=== PATIENT | female | born 1995 | race Caucasian/White ===

== ENCOUNTER 2023-06-10 23:37 | Outpatient (CLI) | payer MEDICAID | END 2023-06-10 23:59 | disposition critical access hospital (66) | LOC: EMS 23:37 | DX: R05.9 Cough, unspecified (principal); J45.909 Unspecified asthma, uncomplicated; M54.6 Pain in thoracic spine; F41.9 Anxiety disorder, unspecified | CPT/HCPCS: A0425; A0427; A0999 ==

== ENCOUNTER 2023-06-10 23:56 | Emergency (ER) | payer MEDICAID ==
[2023-06-11] MEDS ORDERED: LEVALBUTEROL 1.25 MG/3 ML NEB INH ONE (00:02)
[2023-06-11 00:26] LABS: BASOPHILS % (AUTO) 0.1 %; HCT - HEMATOCRIT 38.6 % (37.0-47.0); HGB - HEMOGLOBIN 12.5 g/dL (12.0-16.0); LYMPHOCYTES % (AUTO) 10.1 %; MEAN CORPUSCULAR HEMOGLOBIN 30.3 pg (27.0-31.0); MEAN CORPUSCULAR HGB CONC 32.4 g/dL (32.0-36.0); MEAN CORPUSCULAR VOLUME 93.7 fL (81.0-99.0); MEAN PLATELET VOLUME 11.8 fL (7.9-10.8); MONOCYTES % (AUTO) 16.1 %; NEUTROPHILS % (AUTO) 73.5 %; PLT - PLATELET COUNT 286 10^3/uL (130-450); RED BLOOD COUNT 4.12 10^6/uL (4.20-5.40); WHITE BLOOD COUNT 12.5 x10^3/uL (4.8-10.8)
[2023-06-11] MEDS ORDERED: LORazepam 2 MG/ML VIAL IVP STA (00:29)
[2023-06-11] MEDS ORDERED: KETOROLAC 30 MG/ML VIAL IVP STA (00:30)
[2023-06-11] MEDS ORDERED: HYDROmorphone 0.5 MG/0.5 ML SYRINGE IVP STA (00:31)
[2023-06-11 00:34] LABS: ABNORMAL LYMPHS % (MANUAL) 0 %
--- NOTE | 2023-06-11 00:34 | ED Physician Documentation ---
PD HPI DYSPNEA - Stated complaint Stated Complaint: ASTHMA/SOA - Chief complaint Chief Complaint: Resp - History obtained from History obtained from: Patient, Family, EMS - Additional information Additional information: The patient comes to the emergency department chief complaint of difficulty breathing. She has a history of asthma but over the past week has had an upper respiratory type infection with rhinorrhea and cough, which has exacerbated her asthma. The patient has been taking multiple leave albuterol treatments each day and also, after being seen at the walk-in clinic, has been on steroids and an antibiotic for the last 3 days. The patient's significant other states she had an x-ray of her chest which was negative but was not worked up with a respiratory PCR or any other viral testing. The patient states other than asthma she is fairly healthy. 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 She does get exacerbations when she has an upper respiratory infection however. The patient denies any fevers or chills. She actually went to work today but this evening, began to feel short of breath and as though she was wheezing again. She took her Xopenex nebulizer treatments at home but felt like it made her worse and then she began having a terrible coughing fit which she could not seem to overcome. She states that the only thing that helps her is her patting her back. Medics report that they gave Decadron and route and that the patient did not really seem to have any relief. The patient states that she does have a cramp in her left side, she believes from all the coughing. No other complaints at this time. PD PAST MEDICAL HISTORY - Past Medical History Past Medical History: Yes Respiratory: Asthma Psych: Depression, Anxiety, ADD/ADHD - Past Surgical History Past Surgical History: Yes - Present Medications Home Medications: Ambulatory Orders Medication Instructions Recorded Confirmed Amox/Clav 875/125 [Augmentin 875 mg PO BID 06/11/23 06/11/23 875/125 Tab] Benzonatate 200 mg PO DAILY 06/11/23 06/11/23 Budesonide/Formoterol Fumarate 160 mg INH PRN PRN 06/11/23 06/11/23 [Symbicort 160-4.5 Mcg Inhaler] Codeine Phosphate/Guaifenesin 10 ml PO Q6H PRN #250 ml 06/11/23 [Guaifen-Codeine 200-20 mg/10Ml] Dextroamphetamine/Amphetamine 20 mg PO DAILY 06/11/23 06/11/23 [Adderall 20 mg Tablet] Gabapentin [Neurontin] 300 mg PO TID 06/11/23 06/11/23 Ibuprofen [Motrin] 800 mg PO Q8H PRN #30 tablet 06/11/23 Ipratropium [Atrovent] 0.5 mg INH Q6H PRN #25 ml 06/11/23 Levalbuterol [Xopenex] 1.25 mg IH PRN PRN 06/11/23 06/11/23 Levalbuterol [Xopenex] 1.25 mg INH RTQ4H PRN #50 each 06/11/23 predniSONE [Prednisone] 50 mg PO DAILY 06/11/23 06/11/23 - Allergies Allergies/Adverse Reactions: Allergies Allergy/AdvReac Type Severity Reaction Status Date / Time albuterol Allergy Anaphylaxis Verified 06/11/23 00:11 - Social History Does the pt smoke?: No Smoking Status: Never smoker Does the pt drink ETOH?: No Does the pt have substance abuse?: No PD ED PE NORMAL - Vitals Vital signs reviewed: Yes - General General: Alert and oriented X 3, Well developed/nourished, Other (Patient is coughing continuously and appears extremely anxious.) - HEENT HEENT: Atraumatic, PERRL, EOMI, Moist mucous membranes - Neck Neck: Supple, no meningeal sign - Cardiac Cardiac: No murmur, Other (Tachycardic rate regular rhythm no murmurs.) - Respiratory Respiratory: Other (Robust air movement into the depths of bilateral lungs with some transmission of upper airway sounds and possibly, some mild rhonchi. No high-pitched wheezing. No rales. No prolonged expiratory phase. Tachypnea.) - Abdomen Abdomen: Normal bowel sounds, Soft, Non tender, Non distended - Derm Derm: Warm and dry - Extremities Extremities: No deformity - Neuro Neuro: Alert and oriented X 3 - Psych Psych: Normal mood, Normal affect Results - Vitals Vitals: Vital Signs - 24 hr 06/11/23 06/11/23 06/11/23 00:03 00:09 02:09 Temperature 36.3 C L Heart Rate 145 H 120 H 99 Respiratory 38 H 28 H 22 Rate Blood Pressure 144/101 H 129/69 O2 Saturation 100 98 97 Oxygen O2 Source Room air - EKG (time done) 0205 EKG releavant findings:: EKG personally interpreted by author of this note. Relevant findings are: Rate: Rate (enter#) (90) Rhythm: NSR Egan: Normal Intervals: Normal ND QRS: Normal Ischemia: Normal ST segments Compare to prior EKG: Old EKG unavailable Computer interpretation: Agree with computer - Labs Labs: Laboratory Tests 06/11/23 06/11/23 06/11/23 00:04 00:04 00:40 WBC 12.5 H RBC 4.12 L Hgb 12.5 Hct 38.6 MCV 93.7 MCH 30.3 MCHC 32.4 RDW 13.0 Plt Count 286 MPV 11.8 H Neut # (Auto) Not Reportable Lymph # (Auto) Not Reportable [place] # (Auto) Not Reportable Eos # (Auto) Not Reportable Baso # (Auto) Not Reportable Absolute Nucleated RBC Not Reportable Total Counted 100 Band Neuts % (Manual) 1 Abnorm Lymph % (Manual) 0 Nucleated RBC % Not Reportable Neutrophils # (Manual) 9.0 H Lymphocytes # (Manual) 1.5 Monocytes # (Manual) 2.0 H Eosinophils # (Manual) 0.0 Basophils # (Manual) 0.0 Differential Comment MANUAL DIFFERENTIAL Platelet Estimate NORMAL (130-450,000) RBC Morph Micro Appear NORMAL APPEARANCE Sodium 140 Potassium 3.7 Chloride 102 Carbon Dioxide 22 Anion Gap 16.0 H BUN 14 Creatinine 0.7 Estimated GFR (MDRD) 99 Glucose 130 H Calcium 10.5 H Total Bilirubin 0.5 AST 25 ALT 21 Alkaline Phosphatase 60 Total Protein 7.9 Albumin 5.0 Globulin 2.9 Albumin/Globulin Ratio 1.7 Lipase 168 H Nasal Adenovirus (PCR) NOT DETECTED Nasal B. parapertussis DNA (PCR) NOT DETECTED Nasal Coronavir 229E PCR NOT DETECTED Nasal Coronavir HKU1 PCR NOT DETECTED Nasal Coronavir NL63 PCR NOT DETECTED Nasal Coronavir OC43 PCR NOT DETECTED Nasal Enterovir/Rhinovir PCR NOT DETECTED Nasal Influenza B PCR NOT DETECTED Nasal Influenza A PCR NOT DETECTED Nasal Parainfluen 1 PCR NOT DETECTED Nasal Parainfluen 2 PCR NOT DETECTED Nasal Parainfluen 3 PCR NOT DETECTED Nasal Parainfluen 4 PCR NOT DETECTED Nasal RSV (PCR) DETECTED A Nasal B.pertussis DNA PCR NOT DETECTED Nasal C.pneumoniae (PCR) NOT DETECTED Jose Human Metapneumo PCR NOT DETECTED Nasal M.pneumoniae (PCR) NOT DETECTED Nasal SARS-CoV-2 (PCR) NOT DETECTED Ethyl Alcohol < 10.0 - Rads (name of study) CXR Relevant Findings:: Final report received, See rad report (neg) PD Medical Decision Making - ED course Complexity details: reviewed results, re-evaluated patient, considered differential, d/w patient, d/w family ED course: The patient actually had good air movement and oxygen saturation and was already on antibiotics, steroids, and her Xopenex nebs. I felt she most likely was suffering from a combination of sympathetic overload from the meds and the coughing fit as well as possibly anxiety, and also, having discomfort from the physical roughness of the coughing. As such, I did order an IV dose of Ativan, as well as Dilaudid and Toradol. A chest x-ray was performed and unremarkable. The patient had asked to use her own Xopenex nebs here in the ED and she did take a couple of them while here. The patient actually ended up refusing the Ativan and Dilaudid but did except the Toradol. She was found to be resting comfortably and lungs were completely clear. Her respiratory PCR panel came back positive for RSV. Her EKG was completely normal. Laboratory studies were unremarkable. I discussed all of this at length with the patient, who had many questions. I answered all of her questions and ultimately, her main concerns came down to getting through the symptoms and keeping her asthma under control. I have prescribed symptomatic meds for at home, as well as refilling her nebules. The patient is stable for discharge home. We have discussed home management of the symptoms, as well as the usual indications for return. Departure - Departure Disposition: 01 Home, Self Care Clinical Impression: RSV (respiratory syncytial virus infection) Asthma Qualifiers: Asthma severity: mild Asthma persistence: intermittent Asthma complication type: with acute exacerbation Qualified Code(s): J45.21 - Mild intermittent asthma with (acute) exacerbation Condition: Stable Instructions: Virus Respiratory Syncytial, ED Viral Syndrome Prescriptions: Ipratropium [Atrovent] 0.5 mg INH Q6H PRN #25 ml PRN Reason: Wheezing Codeine Phosphate/Guaifenesin [Guaifen-Codeine 200-20 mg/10Ml] 10 ml PO Q6H PRN #250 ml PRN Reason: Cough Ibuprofen [Motrin] 800 mg PO Q8H PRN #30 tablet PRN Reason: PAIN &/OR FEVER Levalbuterol [Xopenex] 1.25 mg INH RTQ4H PRN #50 each PRN Reason: Wheezing Comments: Overall, your tests look good. Your labs do not show any concerning abnormalities and your chest x-ray is clear. Your EKG is completely normal with no evidence of pericarditis or any other cardiac emergency. Your respiratory PCR panel, that nasal swab, it did come back positive for RSV, a common upper respiratory virus. In most people, RSV causes a bad "cold" with hard coughing. It can last anywhere from several days to a couple of weeks and ultimately, w ill resolve on its own. Antibiotics will not help this illness. You have already been placed on antibiotics for bronchitis from the walk-in clinic, and at this point, might as well finish the course. You should also finish your steroid course and take your home nebulizers and inhalers as needed. If you experience further aches or pains, you may take ibuprofen and Tylenol to help with these. Please continue your plans to get established with primary care as soon as possible, as well. Forms: PCP List Discharge Date/Time: 06/11/23 02:37
[2023-06-11 00:39] LABS: ETOH - ETHANOL < 10.0 mg/dL; LIPASE 168 U/L (11-82)
[2023-06-11 00:42] LABS: ALBUMIN/GLOBULIN RATIO 1.7 (1.0-2.2); ALKALINE PHOSPHATASE 60 IU/L (42-121); ALT ALANINE AMINOTRANSFERASE 21 IU/L (10-60); AST ASPARTATE AMINOTRANSFERASE 25 IU/L (10-42); BILIRUBIN,TOTAL 0.5 mg/dL (0.2-1.0); BUN - BLOOD UREA NITROGEN 14 mg/dL (6-20); CALCIUM 10.5 mg/dL (8.5-10.3); CARBON DIOXIDE - CO2 22 mmol/L (21-32); CHLORIDE 102 mmol/L (101-111); CREATININE 0.7 mg/dL (0.6-1.3); GFR - MDRD 99 (>89); GLUCOSE 130 mg/dL (74-104); POTASSIUM 3.7 mmol/L (3.5-4.5); SODIUM 140 mmol/L (135-145); TOTAL PROTEIN 7.9 g/dL (6.4-8.9)
[2023-06-11 01:15] LABS: BAND NEUTROPHILS % (MANUAL) 1 %; DIFFERENTIAL COMMENT MANUAL DIFFERENTIAL; LYMPHOCYTES # (MANUAL) 1.5 10^3/uL (1.5-3.5); LYMPHOCYTES % (MANUAL) 12 %; PLATELET ESTIMATE, MANUAL NORMAL (130-450,000) (NORMAL); RBC MORPHOLOGY (MULTIPLE) NORMAL APPEARANCE (NORMAL)
[2023-06-11 01:37] LABS: B. PARAPERTUSSIS- RESP PCR PAN NOT DETECTED; B. PERTUSSIS- RESP PCR PANEL NOT DETECTED; C. PNEUMONIAE- RESP PCR PANEL NOT DETECTED; CORONAVIRUS 229E-RESP PCR NOT DETECTED; CORONAVIRUS HKU1-RESP PCR NOT DETECTED; CORONAVIRUS NL63-RESP PCR NOT DETECTED; CORONAVIRUS OC43-RESP PCR NOT DETECTED; HUMAN METAPNEUMOVIRUS NOT DETECTED; INFLUENZA A- RESP PCR PANEL NOT DETECTED; INFLUENZA B - RESP PCR PANEL NOT DETECTED; M. PNEUMONIAE- RESP PCR PANEL NOT DETECTED; PARAINFLUENZA VIRUS 1 NOT DETECTED; PARAINFLUENZA VIRUS 2 NOT DETECTED; PARAINFLUENZA VIRUS 3 NOT DETECTED; PARAINFLUENZA VIRUS 4 NOT DETECTED; RHINOVIRUS/ENTEROVIRUS NOT DETECTED; RSV- RESP PCR PANEL DETECTED; SARS-CoV-2 -RESP PCR PANEL NOT DETECTED
--- NOTE | 2023-06-11 01:53 | XRAY Report ---
PROCEDURE: Chest 1 View X-Ray INDICATIONS: sob TECHNIQUE: One view of the chest was acquired. COMPARISON: None. FINDINGS: Surgical changes and devices: None. Lungs and pleura: No pleural effusions or pneumothorax. Lungs are clear. Mediastinum: Mediastinal contours appear normal. Heart size is normal. Bones and chest wall: No suspicious bony lesions. Overlying soft tissues appear unremarkable. IMPRESSION: No acute cardiopulmonary process. No focal consolidation. Reviewed by: Rajesh Allen MD on 06/11/2023 1:51 AM [facility] Approved by: Rajesh Allen MD on 06/11/2023 1:51 AM [facility] Station ID: [id number]
[2023-06-11 02:45] VITALS: BP 129/69; O2SAT 97
== END 2023-06-11 02:37 | disposition home or self-care (01) ==
LOC: ED 23:56
DX: J45.21 Mild intermittent asthma with (acute) exacerbation (principal); B97.4 Respiratory syncytial virus as the cause of diseases classified elsewhere; Z20.822 Contact with and (suspected) exposure to COVID-19
CPT/HCPCS: 36415; 71045; 80053; 80320; 83690; 85025; 87633; 93005; 96372; 99283; 99284; J2060

== ENCOUNTER 2023-06-11 11:40 | Outpatient (CLI) | payer MEDICAID | END 2023-06-11 23:59 | disposition critical access hospital (66) | LOC: EMS 11:40 | DX: R06.02 Shortness of breath (principal); R05.9 Cough, unspecified; R00.0 Tachycardia, unspecified; F41.9 Anxiety disorder, unspecified | CPT/HCPCS: A0425; A0427; A0999 ==

== ENCOUNTER 2023-06-11 12:03 | Emergency (ER) | payer MEDICAID ==
[2023-06-11] MEDS ORDERED: SODIUM CHLORIDE 0.9% 1,000 ML IV STA (12:36)
--- NOTE | 2023-06-11 12:45 | ED Physician Documentation ---
PD HPI DYSPNEA - Stated complaint Stated Complaint: COUGH - Chief complaint Chief Complaint: Resp - History obtained from History obtained from: Family (Boyfriend) - Additional information Additional information: Patient is a 27-year-old female presenting for evaluation of cough and difficulty breathing. History is obtained from her significant other at the bedside. She was seen here in the overnight hours for an asthma exacerbation and also found to have RSV. She was given prescriptions for a number of medications including cough medications. She is already been started on prednisone from the walk-in clinic on Friday. The pharmacies were not open overnight so they not been able to get to the pharmacies to fill her prescriptions including her cough medications. Per the boyfriend she had a coughing fit and was not able to get it under control even with using nebulizers and so EMS was called. Per EMS report they noted that she was quite tachypneic and administered 2.5 mg of Versed. Patient is currently sedated and not able to provide any history. Review of Systems Unable to obtain: Other (Drowsy from versed) PD PAST MEDICAL HISTORY - Past Medical History Past Medical History: Yes Respiratory: Asthma Psych: Depression, Anxiety, ADD/ADHD - Past Surgical History Past Surgical History: Yes - Present Medications Home Medications: Ambulatory Orders Medication Instructions Recorded Confirmed Amox/Clav 875/125 [Augmentin 875 mg PO BID 06/11/23 06/11/23 875/125 Tab] Benzonatate 200 mg PO DAILY 06/11/23 06/11/23 Budesonide/Formoterol Fumarate 2 puffs IH BID #10.2 gm 06/11/23 [Symbicort 160-4.5 Mcg Inhaler] Budesonide/Formoterol Fumarate 160 mg INH PRN PRN 06/11/23 06/11/23 [Symbicort 160-4.5 Mcg Inhaler] Codeine Phosphate/Guaifenesin 10 ml PO Q6H PRN #250 ml 06/11/23 [Guaifen-Codeine 200-20 mg/10Ml] Dextroamphetamine/Amphetamine 20 mg PO DAILY 06/11/23 06/11/23 [Adderall 20 mg Tablet] Gabapentin [Neurontin] 300 mg PO TID 06/11/23 06/11/23 Ibuprofen [Motrin] 800 mg PO Q8H PRN #30 tablet 06/11/23 Ipratropium [Atrovent] 0.5 mg INH Q6H PRN #25 ml 06/11/23 Levalbuterol Tartrate [Xopenex Hfa] 1 - 2 puffs IH Q4HR PRN #15 gm 06/11/23 Levalbuterol [Xopenex] 1.25 mg IH PRN PRN 06/11/23 06/11/23 Levalbuterol [Xopenex] 1.25 mg INH RTQ4H PRN #50 each 06/11/23 Naloxone HCl Nasal [Narcan Nasal] 4 mg NS ONCE PRN #2 kit 06/11/23 predniSONE [Prednisone] 50 mg PO DAILY 06/11/23 06/11/23 - Allergies Allergies/Adverse Reactions: Allergies Allergy/AdvReac Type Severity Reaction Status Date / Time albuterol Allergy Anaphylaxis Verified 06/11/23 00:11 - Social History Does the pt smoke?: No Smoking Status: Never smoker Does the pt drink ETOH?: No Does the pt have substance abuse?: No - POLST Patient has POLST: No PD ED PE NORMAL - General General: No acute distress, Well developed/nourished. No: Alert and oriented X 3 - HEENT HEENT: Atraumatic - Neck Neck: No bruit - Cardiac Cardiac: RRR, Strong equal pulses - Respiratory Respiratory: No respiratory distress, Clear bilaterally - Abdomen Abdomen: Soft, Non tender - Derm Derm: Warm and dry - Extremities Extremities: No edema Results - Vitals Vitals: Vital Signs - 24 hr 06/11/23 06/11/23 06/11/23 12:11 12:17 13:55 Temperature 36.8 C Heart Rate 92 84 108 H Respiratory 16 20 26 H Rate Blood Pressure 120/73 109/71 O2 Saturation 99 98 06/11/23 06/11/23 14:03 15:22 Temperature Heart Rate 104 H 72 Respiratory 22 12 Rate Blood Pressure 121/82 H 128/78 O2 Saturation 100 100 Oxygen O2 Source Room air - Labs Labs: Laboratory Tests 06/11/23 06/11/23 12:47 12:47 Sodium 137 Potassium 3.9 Chloride 104 Carbon Dioxide 26 Anion Gap 7.0 BUN 10 Creatinine 0.5 L Estimated GFR (MDRD) 146 Glucose 125 H Calcium 9.7 Total Bilirubin 0.5 AST 24 ALT 19 Alkaline Phosphatase 56 Total Protein 7.0 Albumin 4.4 Globulin 2.6 Albumin/Globulin Ratio 1.7 Serum HCG, Qual NEGATIVE PD Medical Decision Making - ED course Complexity details: reviewed results, re-evaluated patient, d/w patient, d/w family ED course: Patient is a 27-year-old female presenting for evaluation of shortness of air. She reportedly received Versed from EMS as she was hyperventilating. She initially arrived somewhat sedated. When she woke up she was reporting having a headache as well as having a coughing fit. She was given a neb treatment along with Acetaminophen and a dose of cough medication. Chemistries were reviewed without any significant findings and chest x-ray shows no pneumonia. She was seen last night and diagnosed with RSV. She is on prednisone already. Patient appears to be having episodes of coughing fits causing bronchospasms and then having periods of hyperventilation possibly related to anxiety from having the coughing fits. She did improve with a dose of Ativan here. She is feeling better and resting more comfortably. test is negative which was ordered at her request. Discussed recommendations for treatment as well as need for follow-up and concerning symptoms to return for. Patient requested prescription for Narcan as she is concerned about using medications with codeine and took a hydrocodone earlier today. 1418 - Breathing is better and patient also reports that her breathing feels better but now reporting having cramping pain in the lower abdomen and shaking in her legs. Still appears to be hyperventilating although she states that her breathing feels better. Agreeable to receiving a dose of ativan to help relax her. Departure - Departure Disposition: 01 Home, Self Care Clinical Impression: Bronchospasm, RSV (respiratory syncytial virus infection) Condition: Stable Instructions: ED Bronchitis Asthmatic, ED Viral Syndrome Prescriptions: Levalbuterol Tartrate [Xopenex Hfa] 1 - 2 puffs IH Q4HR PRN #15 gm PRN Reason: Wheezing Naloxone HCl Nasal [Narcan Nasal] 4 mg NS ONCE PRN #2 kit PRN Reason: narcotic overdose Budesonide/Formoterol Fumarate [Symbicort 160-4.5 Mcg Inhaler] 2 puffs IH BID #10.2 gm Comments: I have sent prescriptions to [facility] in [place]. Please make sure you take your inhalers and prednisone as directed. Your previously prescribed cough medication with codeine. Please do not mix this with [id number] cough medications. Please take caution when using cough medicine with codeine as it can be sedating. Next dose of cough medication can be taken at 6PM if you are not drowsy. Forms: PCP List Discharge Date/Time: 06/11/23 15:30
[2023-06-11 13:08] LABS: ALBUMIN 4.4 g/dL (3.2-5.5); ALBUMIN/GLOBULIN RATIO 1.7 (1.0-2.2); BILIRUBIN,TOTAL 0.5 mg/dL (0.2-1.0); CALCIUM 9.7 mg/dL (8.5-10.3); CREATININE 0.5 mg/dL (0.6-1.3); POTASSIUM 3.9 mmol/L (3.5-4.5)
[2023-06-11] MEDS ORDERED: guaiFENesin/CODEINE 5 ML UDC PO STA (13:33)
[2023-06-11] MEDS ORDERED: LEVALBUTEROL 1.25 MG/3 ML NEB INH STA (13:33)
[2023-06-11] MEDS ORDERED: ACETAMINOPHEN 500 MG TABLET PO STA (13:34)
--- NOTE | 2023-06-11 13:44 | XRAY Report ---
PROCEDURE: Chest 1 View X-Ray INDICATIONS: SOA TECHNIQUE: One view of the chest was acquired. COMPARISON: Chest x-ray 06/11/2023. FINDINGS: Surgical changes and devices: None. Lungs and pleura: No pleural effusions or pneumothorax. Lungs are clear. Mediastinum: Mediastinal contours appear normal. Heart size is normal. Bones and chest wall: No suspicious bony lesions. Overlying soft tissues appear unremarkable. IMPRESSION: No acute cardiopulmonary process. Reviewed by: Sunny Sylvester MD on 06/11/2023 1:43 PM PST Approved by: Sunny Sylvester MD on 06/11/2023 1:43 PM PST Station ID: [id number]
[2023-06-11 14:15] VITALS: O2SAT 100
[2023-06-11] MEDS ORDERED: LORazepam 2 MG/ML VIAL IVP STA (14:16)
[2023-06-11] MEDS ORDERED: KETOROLAC 30 MG/ML VIAL IVP STA (14:17)
[2023-06-11 14:45] LABS: HCG,QUALITATIVE BLOOD NEGATIVE
[2023-06-11 15:24] VITALS: BP 128/78
== END 2023-06-11 15:30 | disposition home or self-care (01) ==
LOC: EDUNIT# → ED 12:03
DX: J98.01 Acute bronchospasm (principal); B97.4 Respiratory syncytial virus as the cause of diseases classified elsewhere
CPT/HCPCS: 36415; 71045; 80053; 84703; 94640; 96374; 99283; 99284; A9270; J2060

== ENCOUNTER 2023-06-13 01:23 | Outpatient (CLI) | payer MEDICAID | END 2023-06-13 01:24 | disposition critical access hospital (66) | LOC: EMS 01:23 | DX: R07.89 Other chest pain (principal); R10.32 Left lower quadrant pain; R05.9 Cough, unspecified; R53.1 Weakness; R45.89 Other symptoms and signs involving emotional state; F41.9 Anxiety disorder, unspecified | CPT/HCPCS: A0425; A0429; A0999 ==

== ENCOUNTER 2023-06-13 01:39 | Emergency (ER) | payer MEDICAID ==
[2023-06-13 01:53] VITALS: BP 136/86; O2SAT 98
--- NOTE | 2023-06-13 03:15 | ED Physician Documentation ---
History of Present Illness - Stated complaint Stated Complaint: COUGH, WEAKNESS, ANXIETY - Chief complaint Chief Complaint: General - History obtained from History obtained from: Patient, Other (significant other) - Additonal information Additional information: 27-year-old woman presents to the ED for a third visit in the past couple of days for URI symptoms and progressive debilitation after being diagnosed with RSV. Her boyfriend states that she has been relying on him to move her to and from the bathroom and has been bedbound the past couple of days, which is completely different from her usual functional state. She does have history of anxiety and depression but is not currently taking any medications for it. Patient has been taking prescription strength cough medicine and her boyfriend also states that he provided her with hydrocodone tonight. She was sedated appearing on arrival, limiting further history. PD PAST MEDICAL HISTORY - Past Medical History Respiratory: Asthma Psych: Depression, Anxiety, ADD/ADHD - Past Surgical History Past Surgical History: Yes - Present Medications Home Medications: Ambulatory Orders Medication Instructions Recorded Confirmed Amox/Clav 875/125 [Augmentin 875 mg PO BID 06/11/23 06/11/23 875/125 Tab] Benzonatate 200 mg PO DAILY 06/11/23 06/11/23 Budesonide/Formoterol Fumarate 2 puffs IH BID #10.2 gm 06/11/23 [Symbicort 160-4.5 Mcg Inhaler] Budesonide/Formoterol Fumarate 160 mg INH PRN PRN 06/11/23 06/11/23 [Symbicort 160-4.5 Mcg Inhaler] Codeine Phosphate/Guaifenesin 10 ml PO Q6H PRN #250 ml 06/11/23 [Guaifen-Codeine 200-20 mg/10Ml] Dextroamphetamine/Amphetamine 20 mg PO DAILY 06/11/23 06/11/23 [Adderall 20 mg Tablet] Gabapentin [Neurontin] 300 mg PO TID 06/11/23 06/11/23 Ibuprofen [Motrin] 800 mg PO Q8H PRN #30 tablet 06/11/23 Ipratropium [Atrovent] 0.5 mg INH Q6H PRN #25 ml 06/11/23 Levalbuterol Tartrate [Xopenex Hfa] 1 - 2 puffs IH Q4HR PRN #15 gm 06/11/23 Levalbuterol [Xopenex] 1.25 mg IH PRN PRN 06/11/23 06/11/23 Levalbuterol [Xopenex] 1.25 mg INH RTQ4H PRN #50 each 06/11/23 Naloxone HCl Nasal [Narcan Nasal] 4 mg NS ONCE PRN #2 kit 06/11/23 predniSONE [Prednisone] 50 mg PO DAILY 06/11/23 06/11/23 - Allergies Allergies/Adverse Reactions: Allergies Allergy/AdvReac Type Severity Reaction Status Date / Time albuterol Allergy Anaphylaxis Verified 06/13/23 01:49 - Social History Does the pt smoke?: No Smoking Status: Never smoker Does the pt drink ETOH?: No Does the pt have substance abuse?: No - POLST Patient has POLST: No PD ED PE NORMAL - Vitals Vital signs reviewed: Yes - General General: Alert and oriented X 3, No acute distress, Well developed/nourished - HEENT HEENT: Atraumatic, PERRL, EOMI - Neck Neck: Supple, no meningeal sign - Cardiac Cardiac: RRR - Respiratory Respiratory: No respiratory distress, Clear bilaterally - Abdomen Abdomen: Non tender, Non distended - Derm Derm: Normal color, Warm and dry Results - Vitals Vitals: Oxygen O2 Source Room air - Labs Labs: Laboratory Tests 06/13/23 06/13/23 06/13/23 02:26 03:21 03:21 WBC 11.1 H RBC 3.99 L Hgb 12.1 Hct 36.9 L MCV 92.5 MCH 30.3 MCHC 32.8 RDW 13.1 Plt Count 266 MPV 11.4 H Neut # (Auto) 8.4 H Lymph # (Auto) 1.5 Motley # (Auto) 1.2 H Eos # (Auto) 0.0 Baso # (Auto) 0.0 Absolute Nucleated RBC 0.00 Nucleated RBC % 0.0 Sodium 139 Potassium 3.7 Chloride 102 Carbon Dioxide 28 Anion Gap 9.0 BUN 9 Creatinine 0.6 Estimated GFR (MDRD) 118 Glucose 89 POC Whole Bld Glucose 92 Calcium 9.8 Magnesium 1.9 Total Bilirubin 0.8 AST 26 ALT 21 Alkaline Phosphatase 54 Total Creatine Kinase 213 Total Protein 6.8 Albumin 4.3 Globulin 2.5 Albumin/Globulin Ratio 1.7 Lipase 23 TSH 1.45 Urine Color Urine Clarity Urine pH Ur Specific [place] Urine Protein Urine Glucose (UA) Urine Ketones Urine Occult Blood Urine Nitrite Urine Bilirubin Urine Urobilinogen Ur Leukocyte Esterase Ur Microscopic Review Urine Culture Comments Urine HCG, Qual Salicylates < 1.5 Urine Opiates Screen Ur Buprenorphine Scrn Ur Oxycodone Screen Urine Methadone Screen Acetaminophen 2.0 Ur Barbiturates Screen Ur Tricyclics Screen Ur Phencyclidine Scrn Ur Amphetamine Screen U Methamphetamines Scrn U Benzodiazepines Scrn Urine Cocaine Screen U Cannabinoids Screen Ur Drug Screen Comment Ethyl Alcohol < 10.0 SARS-CoV-2 (PCR) 06/13/23 06/13/23 03:23 03:50 WBC RBC Hgb Hct MCV MCH MCHC RDW Plt Count MPV Neut # (Auto) Lymph # (Auto) [place] # (Auto) Eos # (Auto) Baso # (Auto) Absolute Nucleated RBC Nucleated RBC % Sodium Potassium Chloride Carbon Dioxide Anion Gap BUN Creatinine Estimated GFR (MDRD) Glucose POC Whole Bld Glucose Calcium Magnesium Total Bilirubin AST ALT Alkaline Phosphatase Total Creatine Kinase Total Protein Albumin Globulin Albumin/Globulin Ratio Lipase TSH Urine Color YELLOW Urine Clarity CLEAR Urine pH 7.0 Ur Specific [place] 1.010 Urine Protein NEGATIVE Urine Glucose (UA) NEGATIVE Urine Ketones NEGATIVE Urine Occult Blood NEGATIVE Urine Nitrite NEGATIVE Urine Bilirubin NEGATIVE Urine Urobilinogen 0.2 (NORMAL) Ur Leukocyte Esterase NEGATIVE Ur Microscopic Review NOT INDICATED Urine Culture Comments NOT INDICATED Urine HCG, Qual NEGATIVE Salicylates Urine Opiates Screen POSITIVE H Ur Buprenorphine Scrn NEGATIVE Ur Oxycodone Screen NEGATIVE Urine Methadone Screen NEGATIVE Acetaminophen Ur Barbiturates Screen NEGATIVE Ur Tricyclics Screen NEGATIVE Ur Phencyclidine Scrn NEGATIVE Ur Amphetamine Screen NEGATIVE U Methamphetamines Scrn NEGATIVE U Benzodiazepines Scrn POSITIVE H Urine Cocaine Screen NEGATIVE U Cannabinoids Screen NEGATIVE Ur Drug Screen Comment CUTOFF CONC BELOW: Ethyl Alcohol SARS-CoV-2 (PCR) NOT DETECTED PD Medical Decision Making - ED course ED course: 3am - d/w patient and her boyfriend that she does not have anything medically emergent going on and can go home. after extensive questions from boyfriend, all of which were answered, I stated I would bring her discharge paperwork. She then began crying, writhing in bed, and states she needs help and has been having hallucinations of relatives. Denies SI/HI. boyfriend states she has been responding to internal stimuli. He does not feel he can care for her at home and is requesting a social worker clinical. 4:30am - patient and boyfriend now requesting for her to go home. Labwork appears benign. she did test positive for opiates and benzodiazepines and states she has taken xanax in the past. She states she has had hallucinations the past couple days of the presence of her mother, but states it is a benign presence and more of a spiritual experience rather than hallucination. She still denies SI/HI and states she is not being directed to harm herself or others by any hallucinations. Advised outpatient mental health follow up and recommended a therapy tang based telehealth platform ([employer]) in the interim until she can get in to see a therapist. Also recommended f/u with pcp for referral to psychiatry. counseled to hold off on any further hydrocodone use and use cough medicine only sparingly. return precautions given. Departure - Departure Disposition: 01 Home, Self Care Clinical Impression: URI (upper respiratory infection), Hallucinations Condition: Stable Instructions: ED URI Viral Comments: You were seen in the emergency department for viral upper respiratory infection. You also will benefit from seeing a mental health counselor and potentially talking to your primary care provider about medication and non medication routes to address the hallucinations you've been experiencing. Please follow-up with your primary care provider and return to the emergency department if you have any new or worsening symptoms or other concerns. Forms: PCP List Discharge Date/Time: 06/13/23 04:44
[2023-06-13 03:27] LABS: BASOPHILS % (AUTO) 0.1 %; HCT - HEMATOCRIT 36.9 % (37.0-47.0); HGB - HEMOGLOBIN 12.1 g/dL (12.0-16.0); LYMPHOCYTES # (AUTO) 1.5 10^3/uL (1.5-3.5); LYMPHOCYTES % (AUTO) 13.2 %; MEAN CORPUSCULAR HEMOGLOBIN 30.3 pg (27.0-31.0); MEAN CORPUSCULAR HGB CONC 32.8 g/dL (32.0-36.0); MEAN CORPUSCULAR VOLUME 92.5 fL (81.0-99.0); MEAN PLATELET VOLUME 11.4 fL (7.9-10.8); MONOCYTES # (AUTO) 1.2 10^3/uL (0.0-1.0); MONOCYTES % (AUTO) 10.5 %; NEUTROPHILS # (AUTO) 8.4 10^3/uL (1.5-6.6); NEUTROPHILS % (AUTO) 75.8 %; PLT - PLATELET COUNT 266 10^3/uL (130-450); RED BLOOD COUNT 3.99 10^6/uL (4.20-5.40); RED CELL DISTRIBUTION WIDTH 13.1 % (12.0-15.0); WHITE BLOOD COUNT 11.1 x10^3/uL (4.8-10.8)
[2023-06-13 03:56] LABS: THYROID STIMULATING HORMONE 1.45 uIU/mL (0.34-5.60)
[2023-06-13 04:09] LABS: BILIRUBIN,URINE NEGATIVE (NEGATIVE); GLUCOSE, URINE (UA) NEGATIVE (NEGATIVE); KETONES,URINE (UA) NEGATIVE (NEGATIVE); LEUKOCYTE ESTERASE, URINE NEGATIVE (NEGATIVE); NITRITE,URINE NEGATIVE (NEGATIVE); OCCULT BLOOD,URINE NEGATIVE (NEGATIVE); PROTEIN,URINE NEGATIVE (NEGATIVE); UROBILINOGEN,URINE 0.2 (NORMAL) E.U./dL (NORMAL)
[2023-06-13 04:23] LABS: CLARITY,URINE CLEAR (CLEAR)
[2023-06-13 04:24] LABS: HCG UR QUAL NEGATIVE
[2023-06-13 04:25] LABS: AMPHETAMINE SCREEN,URINE NEGATIVE (NEGATIVE); BARBITURATE SCREEN,UR NEGATIVE (NEGATIVE); BENZODIAZEPINES SCREEN, URINE POSITIVE (NEGATIVE); BUPRENORPHINE SCREEN, URINE NEGATIVE (NEGATIVE); COCAINE SCREEN URINE NEGATIVE (NEGATIVE); METHADONE SCREEN, URINE NEGATIVE (NEGATIVE); METHAMPHETAMINES SCREEN, URINE NEGATIVE (NEGATIVE); OPIATE SCREEN, URINE POSITIVE (NEGATIVE); OXYCODONE SCREEN, URINE NEGATIVE (NEGATIVE); THC CANNABINOID SCREEN, URINE NEGATIVE (NEGATIVE); TRICYCLIC ANTIDEPRESSANT,URINE NEGATIVE (NEGATIVE)
[2023-06-13 04:55] LABS: ALBUMIN 4.3 g/dL (3.2-5.5); ALBUMIN/GLOBULIN RATIO 1.7 (1.0-2.2); ALKALINE PHOSPHATASE 54 IU/L (42-121); ALT ALANINE AMINOTRANSFERASE 21 IU/L (10-60); AST ASPARTATE AMINOTRANSFERASE 26 IU/L (10-42); BILIRUBIN,TOTAL 0.8 mg/dL (0.2-1.0); BUN - BLOOD UREA NITROGEN 9 mg/dL (6-20); CALCIUM 9.8 mg/dL (8.5-10.3); CARBON DIOXIDE - CO2 28 mmol/L (21-32); CHLORIDE 102 mmol/L (101-111); CK- CREATINE KINASE 213 IU/L (30-223); CREATININE 0.6 mg/dL (0.6-1.3); ETOH - ETHANOL < 10.0 mg/dL; GFR - MDRD 118 (>89); GLUCOSE 89 mg/dL (74-104); LIPASE 23 U/L (11-82); MAGNESIUM 1.9 mg/dL (1.7-2.3); POTASSIUM 3.7 mmol/L (3.5-4.5); SODIUM 139 mmol/L (135-145); TOTAL PROTEIN 6.8 g/dL (6.4-8.9)
[2023-06-13 05:04] LABS: SALICYLATE < 1.5 mg/dL
== END 2023-06-13 04:44 | disposition home or self-care (01) ==
LOC: ED 01:39
DX: J06.9 Acute upper respiratory infection, unspecified (principal); R44.3 Hallucinations, unspecified; F32.A Depression, unspecified; Z11.52 Encounter for screening for COVID-19; Z79.899 Other long term (current) drug therapy
CPT/HCPCS: 36415; 80053; 80306; 80307; 80320; 80329; 81001; 81003; 81025; 82550; 83690; 83735; 84443; 85025; 87086; 87635; 99283